=== PATIENT | male | born 1945 | race Caucasian/White ===

== ENCOUNTER → 2023-06-15 | Outpatient (CLI) | payer MEDICARE ==
[~2023-06-15] MED LIST: AMLO5 PO; ASPI81CH PO; ATOR40TA PO; Hair, Skin & N1 EACH PO; LOSA25 PO; METO100ER PO; Salmon Oil 1,01 EACH PO; [UNRECOGNIZED DRUG - OTHER] PO
== END ==
LOC: LAB SHORT 17:06 → LAB 17:06
DX: M54.59 Other low back pain (principal); R10.30 Lower abdominal pain, unspecified
CPT/HCPCS: 87086

== ENCOUNTER 2024-02-04 12:08 | Day surgery (SDC) | payer MEDICARE ==
[~2024-02-04] VITALS: Ht 152.4 cm; Wt 65.3 kg
[~2024-02-04 12:08] MED LIST changes: +ATOR80 PO; +Aspir 8181 MG PO; +Balanced Salt Epinephrine Irrigation Solution 500 mL IR SCH; +CHLO4 PO; +Docusate Sodiu250 MG PO; +ERGO50000 PO; +JARDIANCE10 MG PO; +LOSARTAN-HCTZ1 EAC5 PO; +Lidocaine HCl/Pf 1% 5 ML VIAL XX SCH; +MULTI-VIT PO; +Moxifloxacin HCL 0.5 MG/0.1 ML 0.4MLSYR LEFTEYE SCH; +NITR.4SL SL; +PHENYLEPHRINE\\TROPICAMIDE\\TETRACAINE OPHTHALMIC DILATING SOLN LEFTEYE PRN; +Povidone-Iodine 450 DROP/30 ML Solution LEFTEYE SCH; +Triamcinolone Inj Susp 40 MG / ML 1ML Vial INJ SCH; +Triamcinolone Inj Susp 40 MG / ML 1ML Vial ONE
--- NOTE | 2024-02-04 12:57 | NUR ---
02/04/24 1257 Philly Rosenthal AT 1249 PLEDGET AT 1250
[2024-02-04] MEDS ORDERED: Midazolam HCl 1MG / ML 2ML Vial ONE (13:20)
[2024-02-04] MEDS ORDERED: Tetracaine HCl 0.5% Opth Soln 15 ml XX ONE (13:24)
[2024-02-04 13:50] VITALS: BP 108/67
== END 2024-02-04 14:15 | disposition home or self-care (01) ==
LOC: ORSCSDS 12:08
PROVIDERS: Ophthalmology
PROC: 08RK3JZ Replacement of Left Lens with Synthetic Substitute, Percutaneous Approach (ICD-10-PCS; principal; 2024-02-04 13:30)
DX: E11.36 Type 2 diabetes mellitus with diabetic cataract (principal); H25.813 Combined forms of age-related cataract, bilateral; I10 Essential (primary) hypertension; Z95.1 Presence of aortocoronary bypass graft; Z95.810 Presence of automatic (implantable) cardiac defibrillator; E78.00 Pure hypercholesterolemia, unspecified; H35.30 Unspecified macular degeneration; Z79.82 Long term (current) use of aspirin; Z79.899 Other long term (current) drug therapy
CPT/HCPCS: 82947; J2250; J3301; V2632

== ENCOUNTER 2024-02-18 11:18 | Day surgery (SDC) | payer MEDICARE ==
[~2024-02-18] VITALS: Ht 152.4 cm; Wt 64.8 kg
[~2024-02-18 11:18] MED LIST changes: -Moxifloxacin HCL 0.5 MG/0.1 ML 0.4MLSYR LEFTEYE SCH; +Moxifloxacin HCL 0.5 MG/0.1 ML 0.4MLSYR RIGHTEYE SCH; -PHENYLEPHRINE\\TROPICAMIDE\\TETRACAINE OPHTHALMIC DILATING SOLN LEFTEYE PRN; +PHENYLEPHRINE\\TROPICAMIDE\\TETRACAINE OPHTHALMIC DILATING SOLN RIGHTEYE PRN; -Povidone-Iodine 450 DROP/30 ML Solution LEFTEYE SCH; +Povidone-Iodine 450 DROP/30 ML Solution ONE; +Povidone-Iodine 450 DROP/30 ML Solution RIGHTEYE SCH; +Tetracaine HCl/Pf 0.5% Opth Soln 4 ml ONE
[2024-02-18] MEDS ORDERED: Diazepam 5 MG Tab ONE (11:59)
[2024-02-18] MEDS ORDERED: Ondansetron HCl 2 MG / ML 2ML Vial ONE (12:14)
[2024-02-18] MEDS ORDERED: CHLO4 PO (12:24)
[2024-02-18 13:02] VITALS: BP 129/74
== END 2024-02-18 13:16 | disposition home or self-care (01) ==
LOC: ORSCSDS 11:18
PROVIDERS: Ophthalmology
PROC: 08RJ3JZ Replacement of Right Lens with Synthetic Substitute, Percutaneous Approach (ICD-10-PCS; principal; 2024-02-18 13:00)
DX: E11.36 Type 2 diabetes mellitus with diabetic cataract (principal); H25.811 Combined forms of age-related cataract, right eye; H35.30 Unspecified macular degeneration; Z96.1 Presence of intraocular lens; E78.00 Pure hypercholesterolemia, unspecified; I10 Essential (primary) hypertension; I25.10 Atherosclerotic heart disease of native coronary artery without angina pectoris; E78.5 Hyperlipidemia, unspecified; Z79.82 Long term (current) use of aspirin; Z79.84 Long term (current) use of oral hypoglycemic drugs; Z79.899 Other long term (current) drug therapy; Z87.891 Personal history of nicotine dependence
CPT/HCPCS: 82947; A9270; J2405; J3301; V2632